=== PATIENT | female | born 1985 | race Caucasian/White ===

== ENCOUNTER 2024-10-11 12:30 | Emergency (ER) | payer OTHER, SELFPAY ==
--- OUTSIDE RECORDS SUMMARY | 2024-10-11 12:33 | XMS REPORT | Continuity of Care Document ---
Author Name Unknown Address [address] [facility] [address] [place] [id number] [facility] thconnect Address [address] [facility]. [address] [place] [address] Care Team Providers Care Systems Program Manager Name Role Phone GUU_SHENG_YAW Attending Clinician Unavailable AMBREEN_FARHANA Attending Clinician Unavailable GUU_SHENG_YAW Admitting Clinician Unavailable AMBREEN_FARHANA Admitting Clinician Unavailable Payers Payer Name Policy Type Policy Number Effective Date Expirati on Date Source Encounters Start Date/Time End Date/Time Encounter Type Admission Type Attending Clinicians Care Facility Care Department Encounter ID Source 2022-09-20 00:00:00 2022-09-20 00:00:00 Outpatient GUU_SHENG_Y AW [facility] [id number] [facility] 2022-02-06 02:48:00 2022-02-06 02:48:00 Outpatient GUU_SHENG_Y AW [facility] [id number] [facility] 2020-06-15 09:28:00 2020-06-15 09:28:00 Outpatient AMBREEN_FAR HANA [facility] [id number] [facility]
[2024-10-11] MEDS ORDERED: ONDANSETRON 4 MG/2 ML VIAL ONE (13:48)
[2024-10-11] MEDS ORDERED: NA CHLORIDE 0.9% 1,000 ML ONE (13:48)
[2024-10-11] MEDS ORDERED: PANTOPRAZOLE 40 MG INJ ONE (13:49)
[2024-10-11] MEDS ORDERED: MORPHINE 4 MG/ML SYR ONE ×2 (13:49→16:06)
[2024-10-11 14:12] LABS: Absolute Lymphocytes (CBC) 0.4 K/uL (0.7-4.9); Absolute Monocytes 0.5 K/uL (0.1-1.3); Absolute Neutrophil 7.4 K/uL (1.8-8.0); Basophils % 0.2 % (0-1.3); Eosinophils % 0.1 % (0-4.4); Hematocrit 36.2 % (36.0-45.0); Hemoglobin 12.1 g/dL (12.0-15.0); Lymphocytes % 4.8 % (15.3-44.8); MCH 26.6 pg (27.0-35.0); MCHC 33.3 g/dL (32.0-36.0); MCV 79.9 fL (80-100); MPV 8.3 fL (7.6-11.3); Monocytes % 5.8 % (3.3-12.3); Neutrophils % 89.1 % (41.7-73.7); Platelets 261 thou/uL (152-406); RBC Red Blood Cell Count 4.53 M/uL (3.86-4.86)
[2024-10-11 14:36] LABS: Albumin 3.4 g/dL (3.4-5.0); Albumin/Globulin Ratio 0.8 (1.1-1.8); Anion Gap 10.7 mEq/L (5.0-15.0); Bilirubin Total 0.6 mg/dL (0.2-1.0); Globulin 4.1 g/dL (2.3-3.5); Magnesium 2.1 mg/dL (1.6-2.4); Potassium 3.7 mEq/L (3.5-5.1); Protein, Total 7.5 g/dL (6.4-8.2)
[2024-10-11] MEDS ORDERED: METOCLOPRAMIDE 10 MG/2mL INJ ONE (16:06)
--- NOTE | 2024-10-11 16:22 | RAD REPORT ---
EXAMINATION: CT Abdomen Pelvis W Contrast CLINICAL INDICATION: Female, 39 years old. epigastric pain, vomiting TECHNIQUE: CT abdomen and pelvis was performed, after the administration of IV contrast, as per [facility] protocol. Axial, sagittal and coronal reconstructions were obtained. One or more of the following dose reduction techniques were used: Automated exposure control, adjustment of the mA and k V according to patient size, and iterative reconstruction. Unless otherwise specified, incidental findings do not require dedicated imaging follow-up. COMPARISON: No prior exam. FINDINGS: LOWER CHEST: The visualized lung bases are clear. LIVER: Normal in size and contour. No focal lesion. BILIARY SYSTEM: Pericholecystic mild fluid and wall thickening. SPLEEN: Normal size. No focal lesion. PANCREAS: No mass, ductal dilation, or vern-pancreatic fluid. ADRENALS: Normal; no mass. KIDNEYS: Normal size and contour. No hydronephrosis. URINARY BLADDER: Unremarkable. GASTROINTESTINAL TRACT: Sequelae of gastric bypass. No evidence of free air, significant intra-abdomi nal free fluid, bowel obstruction or abscess. APPENDIX: Normal appendix. LYMPH NODES: No lymphadenopathy. MUSCULOSKELETAL: No acute or suspicious osseous abnormality. ADDITIONAL FINDINGS: Small left inguinal hernia containing fat. IMPRESSION: Mild gallbladder wall thickening and pericholecystic fluid. Please correlate clinically for evidence of acute cholecystitis. Other incidental findings as above.
--- NOTE | 2024-10-11 18:04 | RAD REPORT ---
EXAMINATION: US Abdomen Exam Limited CLINICAL HISTORY: [facility] MAIN Y EPIGASTRIC PAIN Bed Name: 15 COMPARISON: None. TECHNIQUE: Limited upper abdominal grayscale and color flow sonographic images. FINDINGS: Gallbladder: Layering sludge and shadowing calculi present dependently. Gallbladder wall is at the up per limit of normal, measuring 3-4 mm. Mild wall edema. Sonographic Jennings's sign is reportedly negative. No pericholecystic fluid. Bile ducts: No intrahepatic or extrahepatic biliary dilatation. Common bile duct measures 5 mm. Liver: Visualized portions of the liver demonstrate normal echogenicity with no suspicious findings. Fluid: No ascites. IMPRESSION: Cholelithiasis with gallbladder wall at the upper limit of normal thickness. Mild wall edema. Please correlate clinically for acute cholecystitis.
--- NOTE | 2024-10-11 18:17 | ER ---
Nurse's Notes [facility] Name: Greer Clark Age: 39 yrs Sex: Female : 1985 Arrival Date: 10/11/2024 Time: 12:30 Bed 15 Private MD: Diagnosis: Other cholelithiasis without obstruction Presentation: 10/11 13:06 Chief complaint: Patient states: ABD PAIN N/V STARTED THIS AM LEONORA 0900. Coronavirus db screen: Client denies travel out of the [place] in the last 14 days. At this time, the client does not indicate any symptoms associated with coronavirus-19. Ebola Screen: Patient negative for fever greater than or equal to 101.5 degrees Fahrenheit, and additional compatible Ebola Virus Disease symptoms Patient denies exposure to infectious person. Patient denies travel to an Ebola-affected area in the 21 days before illness onset. No symptoms or risks identified at this time. 13:06 Method Of Arrival: Wheelchair db 13:07 Initial Sepsis Screen: Does the patient meet any 2 criteria? No. Patient's initial db sepsis screen is negative. Does the patient have a suspected source of infection? No. Patient's initial sepsis screen is negative. Risk Assessment: Do you want to hurt yourself or someone else? Patient reports no desire to harm self or others. Onset of symptoms was October 11, 2024. 13:07 Acuity: JOSE RAFAEL 3 db Triage Assessment: 13:08 General: Appears in no apparent distress. comfortable, Behavior is calm, cooperative. db Pain: Complains of pain in abdomen. Neuro: Level of Consciousness is awake, alert, obeys commands, Oriented to person, place, time, situation. Respiratory: Airway is patent Respiratory effort is even, unlabored, Respiratory pattern is regular, symmetrical. GI: Abdomen is flat, non-distended, Reports nausea, vomiting. 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 - Infectious Disease History:: Denies. - Social history:: Smoking status: Patient denies any tobacco usage or history of. Screenin:05 [facility] ED Fall Risk Assessment (Adult) History of falling in the last 3 months, rs5 including since admission No falls in past 3 months (0 pts) Confusion or Disorientation No (0 pts) Intoxicated or Sedated No (0 pts) Impaired Gait No (0 pts) Mobility Assist Device Used No (0 pt) Altered Elimination No (0 pt) Score/Fall Risk Level 0 - 2 = Low Risk Oriented to surroundings, Maintained a safe environment. 13:05 Abuse screen: Denies threats or abuse. Nutritional screening: No deficits noted. rs5 Tuberculosis screening: No symptoms or risk factors identified. Assessment: 13:01 General: Appears in no apparent distress. uncomfortable, Behavior is calm, cooperative. rs5 Pain: Complains of pain in abdomen Pain currently is 8 out of 10 on a pain scale. Quality of pain is described as aching, Is continuous. Neuro: Level of Consciousness is awake, alert, obeys commands, Oriented to person, place, time, situation. Cardiovascular: Patient's skin is warm and dry. Respiratory: Airway is patent Respiratory effort is even, unlabored, Respiratory pattern is regular, symmetrical. GI: Bowel sounds present X 4 quads. Abd is soft and non tender X 4 quads. Reports nausea. : No signs and/or symptoms were reported regarding the genitourinary system. EENT: No signs and/or symptoms were reported regarding the EENT system. Derm: Skin is intact, Skin is pink, warm \T\ dry. Musculoskeletal: Range of motion: intact in all extremities. 14:11 Reassessment: Patient and/or family updated on plan of care and expected duration. Pain rs5 level reassessed. Patient is alert, oriented x 3, equal unlabored respirations, skin warm/dry/pink. 15:24 Reassessment: Patient and/or family updated on plan of care and expected duration. Pain rs5 level reassessed. Patient is alert, oriented x 3, equal unlabored respirations, skin warm/dry/pink. 16:42 Reassessment: Patient and/or family updated on plan of care and expected duration. Pain rs5 level reassessed. Patient is alert, oriented x 3, equal unlabored respirations, skin warm/dry/pink. Vital Signs: 13:07 BP 144 / 80; Pulse 60; Resp 16; Temp 98.6; Pulse Ox 96% on R/A; Weight 103.87 kg; db Height 5 ft. 5 in. ; 16:45 BP 137 / 79; Pulse 66; Resp 17; Pulse Ox 99% ; rs5 13:07 Body Mass Index 38.11 (103.87 kg, 165.1 cm) db ED Course: 12:32 Patient arrived in ED. mr 12:49 Dameon Calzada PA is PHCP. cp 12:49 Jerry Morrison MD is Attending Physician. cp 13:05 Patient has correct armband on for positive identification. Bed in low position. Call rs5 light in reach. Side rails up X2. 13:05 No provider procedures requiring assistance completed. rs5 13:08 Triage completed. db 13:08 Arm band placed on Patient placed in an exam room. db 13:22 Wililams Jenkins, RN is Primary Nurse. rs5 13:58 Initial lab(s) drawn, by tn, sent to lab. Inserted saline lock: 20 gauge in right db antecubital area, using aseptic technique. Blood collected. Flushed with 10 mL NS. 15:38 CT Abd/Pelvis - PO and IV Contrast In Process Unspecified. EDMS 17:15 US Abdomen Limited In Process Unspecified. EDMS 18:15 Julius Macias MD is Referral Physician. cp Administered Medications: 13:59 Drug: Ondansetron IVP 4 mg IVP once; over 2 minutes Route: IVP; Site: right antecubital;db 14:20 Follow up: Response: No adverse reaction; Nausea is decreased rs5 13:59 Drug: NS 0.9% IV 1000 ml IV at 1 bolus Per protocol; to be given as a bolus over 60 db minutes Route: IV; Rate: 1 bolus; Site: right antecubital; 15:01 Follow up: Response: No adverse reaction; IV Intake: 999ml rs5 13:59 Drug: Pantoprazole IVP 40 mg IVP once Route: IVP; Site: right antecubital; db 14:22 Follow up: Response: No adverse reaction rs5 13:59 Drug: morphine IVP or IV 4 mg IVP once over 4 mins Route: IVP; Infused Over: 4 mins; db Site: right antecubital; 14:20 Follow up: Response: No adverse reaction; Pain is decreased rs5 16:11 Drug: metoCLOPramide IVP 10 mg IVP once; over 1 to 2 minutes Route: IVP; Site: right rs5 antecubital; 16:34 Follow up: Response: No adverse reaction; Nausea is decreased rs5 16:11 Drug: morphine IVP or IV 4 mg IVP once over 4 mins Route: IVP; Infused Over: 4 mins; rs5 Site: right antecubital; 16:33 Follow up: Response: No adverse reaction; Pain is decreased rs5 Medication: 16:43 VIS not applicable for this client. rs5 Intake: 15:01 IV: 999ml; Total: 999ml. rs5 Outcome: 18:16 Discharge ordered by MD. mathur 18:34 Patient left the ED. rs5 Signatures: Dispatcher [employer] EDMS Melanie Newberry Reg Reg mr Page, Corey, PA PA cp Benton, Danielle, RN RN Williams Pedroza RN RN rs5
--- NOTE | 2024-10-11 18:17 | EDPHYS ---
Physician Documentation [facility] Name: Greer Clark Age: 39 yrs Sex: Female : 1985 Arrival Date: 10/11/2024 Time: 12:30 Bed 15 Private MD: ED Physician Jerry Morrison HPI: 10/11 13:45 This 39 yrs old Female presents to ER via Wheelchair with complaints of Abdominal Pain, cp Vomiting. 13:45 The patient presents with abdominal pain in the epigastric area. Onset: The cp symptoms/episode began/occurred this morning. 13:45 The symptoms radiate to back. Associated signs and symptoms: Pertinent positives: cp nausea and vomiting, Pertinent negatives: constipation, diarrhea, dysuria, fever, vomiting blood. The symptoms are described as constant. Severity of pain: in the emergency department the pain is unchanged despite home interventions. 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 - Infectious Disease History:: Denies. - Social history:: Smoking status: Patient denies any tobacco usage or history of. ROS: 13:50 Constitutional: Negative for body aches, chills, fever, cp 13:50 Eyes: Negative for injury, pain, redness, and discharge, cp 13:50 ENT: Negative for drainage from ear(s), ear pain, sore throat, difficulty swallowing, difficulty handling secretions, 13:50 Respiratory: Negative for cough, shortness of breath, wheezing, 13:50 Abdomen/GI: Positive for abdominal pain, nausea and vomiting, Negative for diarrhea, constipation, hematemesis, 13:50 Neuro: Negative for altered mental status, weakness, 13:50 All other systems are negative, Exam: 13:55 Constitutional: The patient appears in no acute distress, alert, awake, cp non-diaphoretic, non-toxic, well developed, well nourished, obese, uncomfortable, 13:55 Head/Face: Normocephalic, atraumatic. cp 13:55 Eyes: Periorbital structures: appear normal, Conjunctiva: normal, no exudate, no injection, Sclera: no appreciated abnormality, Lids and lashes: appear normal, bilaterally, 13:55 ENT: External ear(s): are unremarkable, Nose: is normal, Mouth: Lips: moist, Oral mucosa: moist, Posterior pharynx: Airway: no evidence of obstruction, patent, 13:55 Chest/axilla: Inspection: normal, 13:55 Cardiovascular: Rate: normal, Rhythm: regular, 13:55 Respiratory: the patient does not display signs of respiratory distress, Respirations: normal, no use of accessory muscles, no retractions, labored breathing, is not present, Breath sounds: are clear throughout, no decreased breath sounds, no stridor, no wheezing, 13:55 Abdomen/GI: Inspection: abdomen appears normal, Bowel sounds: active, all quadrants, Palpation: soft, in all quadrants, moderate abdominal tenderness, in the epigastric area, rebound tenderness, is not appreciated, 13:55 Back: CVA tenderness, is absent, 13:55 Neuro: Orientation: to person, place \T\ time. Mentation: is normal, Motor: moves all fours, strength is normal, Sensation: is normal, Vital Signs: 13:07 BP 144 / 80; Pulse 60; Resp 16; Temp 98.6; Pulse Ox 96% on R/A; Weight 103.87 kg; db Height 5 ft. 5 in. ; 16:45 BP 137 / 79; Pulse 66; Resp 17; Pulse Ox 99% ; rs5 13:07 Body Mass Index 38.11 (103.87 kg, 165.1 cm) db MDM: 12:59 Medical Screening Exam initiated cp 14:00 Differential diagnosis: cholecystitis, Cholelithiasis, gastritis, gastroesophageal cp reflux disease, non-specific abd pain, pancreatitis, Perf. Duodenal Ulcer, Perf. Gastric Ulcer, Pyelonephritis, Ureterolithiasis, urinary tract infection. 18:13 Data reviewed: vital signs, nurses notes, lab test result(s), radiologic studies, CT cp scan, ultrasound. I considered the following discharge prescriptions or medication management in the emergency department Medications were administered in the Emergency Department. See MAR. Counseling: I had a detailed discussion with the patient and/or guardian regarding the historical points, exam findings, and any diagnostic results supporting the discharge/admit diagnosis, lab results, radiology results, recommendation to admit for surgical consultation. 18:15 Special discussion: recommendation for admission and surgical consultation. patient cp refuses at this time and understands risk of condition worsening due to concern for acute cholecystitis at this time. patient understands she can return at any time for reevaluation. 18:15 Response to treatment: the patient's symptoms have markedly improved after treatment, kaeren and as a result, I will discharge patient. 10/11 13:37 Order name: CBC with Diff; Complete Time: 16:44 cp 10/11 16:44 Interpretation: Normal except: MCV 79.9; MCH 26.6; DEVIN% 89.1; LYM% 4.8; LYMA 0.4. cp 10/11 13:37 Order name: CMP; Complete Time: 16:44 cp 10/11 16:44 Interpretation: Normal except: CL 108; GLUC 144; AST 42; GLOB 4.1; A/G 0.8. cp 10/11 13:37 Order name: Lipase; Complete Time: 16:44 cp 10/11 13:37 Order name: Magnesium; Complete Time: 16:44 cp 10/11 13:37 Order name: CT Abd/Pelvis - PO and IV Contrast; Complete Time: 16:44 cp 10/11 16:45 Interpretation: Report reviewed. 10/11 16:46 Order name: US Abdomen Limited; Complete Time: 18:07 cp 10/11 13:37 Order name: IV Saline Lock; Complete Time: 14:05 cp 10/11 13:37 Order name: Labs collected and sent; Complete Time: 14:05 cp Administered Medications: 13:59 Drug: Ondansetron IVP 4 mg IVP once; over 2 minutes Route: IVP; Site: right antecubital;db 14:20 Follow up: Response: No adverse reaction; Nausea is decreased rs5 13:59 Drug: NS 0.9% IV 1000 ml IV at 1 bolus Per protocol; to be given as a bolus over 60 db minutes Route: IV; Rate: 1 bolus; Site: right antecubital; 15:01 Follow up: Response: No adverse reaction; IV Intake: 999ml rs5 13:59 Drug: Pantoprazole IVP 40 mg IVP once Route: IVP; Site: right antecubital; db 14:22 Follow up: Response: No adverse reaction rs5 13:59 Drug: morphine IVP or IV 4 mg IVP once over 4 mins Route: IVP; Infused Over: 4 mins; db Site: right antecubital; 14:20 Follow up: Response: No adverse reaction; Pain is decreased rs5 16:11 Drug: metoCLOPramide IVP 10 mg IVP once; over 1 to 2 minutes Route: IVP; Site: right rs5 antecubital; 16:34 Follow up: Response: No adverse reaction; Nausea is decreased rs5 16:11 Drug: morphine IVP or IV 4 mg IVP once over 4 mins Route: IVP; Infused Over: 4 mins; rs5 Site: right antecubital; 16:33 Follow up: Response: No adverse reaction; Pain is decreased rs5 Disposition: 18:57 Co-signature as Attending Physician, Jerry Morrison MD I reviewed the patient's care rn provided by the Advanced Practice Provider and agree with the diagnosis and treatment plan. Disposition Summary: 10/11/24 18:16 Discharge Ordered Notes: Location: Home cp Problem: new cp Symptoms: have improved cp Condition: Stable cp Diagnosis - Other cholelithiasis without obstruction cp Followup: cp - With: Julius Macias MD - When: 2 - 3 days - Reason: Recheck today's complaints Discharge Instructions: - Discharge Summary Sheet cp - Cholelithiasis cp Forms: - Medication Reconciliation Form cp - Antibiotic Education cp - Prescription Opioid Use cp - Patient Portal Instructions cp - Leadership Thank You Letter cp Prescriptions: - Diflucan 150 mg Oral tablet - take 1 tablet ORAL route one time As needed; 2 tablet; Refills: 0, Product cp Selection Permitted - Zofran 4 mg Oral Tablet - take 1 tablet ORAL route every 12 hours As needed; 20 tablet; Refills: 0, cp Product Selection Permitted - Cipro 500 mg Oral Tablet - take 1 tablet ORAL route every 12 hours for 7 days; 14 tablet; Refills: 0, cp Product Selection Permitted - Metronidazole 500 mg Oral tablet - take 1 tablet ORAL route every 8 hours for 7 days; 21 tablet; Refills: 0, cp Product Selection Permitted - dicyclomine 20 mg Oral tablet - take 1 tablet ORAL route 4 times per day; 30 tablet; Refills: 0, Product cp Selection Permitted Signatures: Dispatcher [employer] EDJerry Turner MD MD rn Page, Corey, PA PA cp Diamante Jameson RN RN Williams Pedroza RN RN rs5 Corrections: (The following items were deleted from the chart) 13:38 13:38 CBC+H.LAB.BRZ ordered. EDMS EDMS 13:38 13:38 COMPREHENSIVE METABOLIC PANEL+C.LAB.BRZ ordered. EDMS EDMS 13:38 13:38 LIPASE+C.LAB.BRZ ordered. EDMS EDMS 13:38 13:38 Test, Urine+UC.LAB.BRZ ordered. EDMS EDMS 13:38 13:38 Urinalysis+U.LAB.BRZ ordered. EDMS EDMS 13:38 13:38 MAGNESIUM+C.LAB.BRZ ordered. EDMS EDMS 13:38 13:38 Abdomen Pelvis W Con+CT.RAD.BRZ ordered. EDMS EDMS 16:47 16:47 Abdomen Limited+US.RAD.BRZ ordered. EDMS EDMS
[2024-10-13 16:12] VITALS: BP 137/79; TEMP 98.6; O2SAT 99
== END 2024-10-11 18:34 | disposition home or self-care (01) ==
LOC: ER 12:30
DX: K80.80 Other cholelithiasis without obstruction (principal); Z98.84 Bariatric surgery status
CPT/HCPCS: 36415; 74177; 76705; 80053; 83690; 83735; 85025; 96374; 96375; 99284; J2405; J2470; J2765; J7030; Q9967

== ENCOUNTER 2024-10-25 01:16 | Emergency (ER) | payer SELFPAY ==
--- OUTSIDE RECORDS SUMMARY | 2024-10-25 01:18 | XMS REPORT | Continuity of Care Document ---
Author Name Unknown Address [address] [place], [place] [id number] [facility] thconnect Address [address] [place] [address] [address] [place] [address] Care Team Providers Care Parking Supervisor Name Role Phone GUU_SHENG_YAW Attending Clinician Unavailable AMBREEN_FARHANA Attending Clinician Unavailable GUU_SHENG_YAW Admitting Clinician Unavailable AMBREEN_FARHANA Admitting Clinician Unavailable Payers Payer Name Policy Type Policy Number Effective Date Expirati on Date Source Encounters Start Date/Time End Date/Time Encounter Type Admission Type Attending Clinicians Care Facility Care Department Encounter ID Source 2022-09-20 00:00:00 2022-09-20 00:00:00 Outpatient GUU_SHENG_Y AW [facility] [id number] [facility] 2022-02-06 02:48:00 2022-02-06 02:48:00 Outpatient GUU_SHENG_Y AW [facility] [id number] [facility] 2020-06-15 09:28:00 2020-06-15 09:28:00 Outpatient AMBREEN_FAR HANA [facility] [id number] [facility]
[2024-10-25] MEDS ORDERED: NA CHLORIDE 0.9% 1,000 ML ONE ×2 (01:39→04:41)
[2024-10-25] MEDS ORDERED: FAMOTIDINE 20 MG/2 ML VIAL IV ONE (01:39)
[2024-10-25] MEDS ORDERED: KETOROLAC 30 MG/ML INJ ONE (01:39)
[2024-10-25] MEDS ORDERED: ONDANSETRON 4 MG/2 ML VIAL ONE ×2 (01:39→02:34)
[2024-10-25 02:14] LABS: Absolute Lymphocytes (CBC) 0.5 K/uL (0.7-4.9); Absolute Monocytes 0.3 K/uL (0.1-1.3); Absolute Neutrophil 6.2 K/uL (1.8-8.0); Basophils % 0.3 % (0-1.3); Eosinophils % 0.1 % (0-4.4); Hematocrit 36.3 % (36.0-45.0); Lymphocytes % 6.5 % (15.3-44.8); MCV 78.8 fL (80-100); MPV 8.4 fL (7.6-11.3); Monocytes % 4.8 % (3.3-12.3); Neutrophils % 88.3 % (41.7-73.7); Nucleated Red Blood Cells % 0.1 % (0-0); Platelets 282 thou/uL (152-406); Red Cell Distribution Width 14.9 % (12.1-15.2)
[2024-10-25 02:22] LABS: Albumin 3.4 g/dL (3.4-5.0); Albumin/Globulin Ratio 0.8 (1.1-1.8); Anion Gap 10.4 mEq/L (5.0-15.0); Globulin 4.3 g/dL (2.3-3.5); Potassium 3.4 mEq/L (3.5-5.1); Protein, Total 7.7 g/dL (6.4-8.2)
[2024-10-25] MEDS ORDERED: MORPHINE 4 MG/ML SYR ONE ×2 (02:34→04:40)
[2024-10-25 04:04] LABS: Blood Morphology Comment NOT SEEN (NOT SEEN); Platelet Estimate ADEQ; White Blood Cell Scan OK (OK)
--- NOTE | 2024-10-25 04:27 | RAD REPORT ---
EXAM: CT Abdomen and Pelvis With Intravenous Contrast CLINICAL HISTORY: The patient is 39 years old and is Female; ABD PAIN TECHNIQUE: Axial computed tomography images of the abdomen and pelvis with intravenous contrast. Sagittal and coronal reformatted images were created and reviewed. This CT exam was performed using one or more of the following dose reduction techniques: automated exposure control, adjustmen t of the mA and/or kV according to patient size, and/or use of iterative reconstruction technique. COMPARISON: CT abdomen and pelvis with contrast October 11, 2024. FINDINGS: Lung bases: Unremarkable. No mass. No consolidation. ABDOMEN: Liver: Unremarkable. No mass. Gallbladder and bile ducts: There may be some mild gallbladder wall thickening and/or pericholecy stic fluid. No ductal dilation. Pancreas: Unremarkable. No mass. No ductal dilation. Spleen: Unremarkable. No splenomegaly. Adrenals: Unremarkable. No mass. Kidneys and ureters: Unremarkable. No solid mass. No hydronephrosis. Stomach and bowel: Postsurgical changes in the stomach. No obstruction. No mucosal thickening. PELVIS: Appendix: No findings to suggest acute appendicitis. Bladder: Unremarkable. Reproductive: Unremarkable as visualized. ABDOMEN and PELVIS: Intraperitoneal space: Unremarkable. No free air. No significant fluid collection. Bones/joints: Old left rib fractures. Postsurgical changes in the right hip/pelvis. No dislocation. Soft tissues: Unremarkable. Vasculature: Unremarkable. No abdominal aortic aneurysm. Lymph nodes: Unremarkable. No enlarged lymph nodes. * A single impression for all exams can be found at the end of this report EXAM: XR Chest, 1 View CLINICAL HISTORY: The patient is 39 years old and is Female; ABD PAIN TECHNIQUE: Frontal view of the chest. COMPARISON: No relevant prior studies available. FINDINGS: Lungs: Unremarkable. No consolidation. Pleural space: Unremarkable. No pneumothorax. Heart: Unremarkable. Mediastinum: Unremarkable. Normal mediastinal contour. Bones/joints: No acute findings. * A single impression for all exams can be found at the end of this report IMPRESSION: CT Abdomen and Pelvis With Intravenous Contrast: There may be some mild gallbladder wall thickening and/or pericholecystic fluid. Correlate with r ight upper quadrant ultrasound if clinically indicated. XR Chest, 1 View: No acute findings in the chest. 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 Transcribed Date/Time: 10/25/2024 4:26 AM
[2024-10-25] MEDS ORDERED: PIPERACIL/TAZO 3.375 GM VIAL IV ONE (04:32)
[2024-10-25] MEDS ORDERED: NA CHLORIDE 0.9% 100 ML ONE (04:32)
[2024-10-25] MEDS ORDERED: METOCLOPRAMIDE 10 MG/2mL INJ ONE (04:40)
--- NOTE | 2024-10-25 05:07 | ER ---
Nurse's Notes [facility] Name: Greer Clark Age: 39 yrs Sex: Female : 1985 Arrival Date: 10/25/2024 Time: 01:16 Bed 17 Private MD: Diagnosis: Cholecystitis, unspecified Presentation: 10/25 01:25 Chief complaint: Patient states: i have gallstones and i need my gallbladder out but i lg3 refused. the pain is back and 10X worse. Coronavirus screen: Client denies travel out of the [place] in the last 14 days. At this time, the client does not indicate any symptoms associated with coronavirus-19. Ebola Screen: No symptoms or risks identified at this time. Initial Sepsis Screen: Does the patient meet any 2 criteria? No. Patient's initial sepsis screen is negative. Does the patient have a suspected source of infection? No. Patient's initial sepsis screen is negative. Risk Assessment: Do you want to hurt yourself or someone else? Patient reports no desire to harm self or others. Onset of symptoms was October 24, 2024. 01:25 Method Of Arrival: Wheelchair lg3 01:25 Acuity: JOSE RAFAEL 3 lg3 Triage Assessment: 01:27 General: Appears in no apparent distress. uncomfortable, Behavior is anxious, fussy, lg3 restless. Pain: Complains of pain in epigastric area Pain radiates to back. EENT: No deficits noted. No signs and/or symptoms were reported regarding the EENT system. Neuro: No deficits noted. [place] Agitation-Sedation Scale (RASS): 0 - Alert and Calm Level of Consciousness is awake, alert, obeys commands, Oriented to person, place, time, situation. Cardiovascular: No deficits noted. Denies chest pain, shortness of breath, Capillary refill < 3 seconds Clubbing of nail beds is absent JVD is absent Patient's skin is warm and dry. Respiratory: No deficits noted. Airway is patent Respiratory effort is even, unlabored, Respiratory pattern is regular, symmetrical. GI: Abdomen is round non-distended, obese, Reports upper abdominal pain, indigestion, intolerance of fluids, intolerance of food, nausea. : No signs and/or symptoms were reported regarding the genitourinary system. Derm: No deficits noted. No signs and/or symptoms reported regarding the dermatologic system. Skin is intact, is healthy with good turgor, Skin is dry, Skin is normal, Skin temperature is warm. Musculoskeletal: No deficits noted. No signs and/or symptoms reported regarding the musculoskeletal system. Circulation, motion, and sensation intact. Range of motion: intact in all extremities. 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 - Infectious Disease History:: Denies. - Social history:: Smoking status: Patient denies any tobacco usage or history of. Patient uses alcohol, occasionally. Patient/guardian denies using street drugs. Screenin:25 [facility] ED Fall Risk Assessment (Adult) History of falling in the last 3 months, br2 including since admission No falls in past 3 months (0 pts) Confusion or Disorientation No (0 pts) Intoxicated or Sedated No (0 pts) Impaired Gait No (0 pts) Mobility Assist Device Used No (0 pt) Altered Elimination No (0 pt) Score/Fall Risk Level 0 - 2 = Low Risk Oriented to surroundings. Abuse screen: Denies threats or abuse. Denies injuries from another. Nutritional screening: No deficits noted. Tuberculosis screening: No symptoms or risk factors identified. Assessment: 01:25 Reassessment: Patient and/or family updated on plan of care and expected duration. Pain br2 level reassessed. Patient is alert, oriented x 3, equal unlabored respirations, skin warm/dry/pink. 01:25 General: Appears uncomfortable, obese, Behavior is anxious, restless. Pain: Complains br2 of pain in right upper quadrant Pain does not radiate. Pain currently is 10 out of 10 on a pain scale. Pain began 2-3 days ago. Neuro: Level of Consciousness is awake, alert, obeys commands, Oriented to person, place, time, situation. Cardiovascular: Capillary refill < 3 seconds. Respiratory: Airway is patent Respiratory effort is even, unlabored, Respiratory pattern is regular, symmetrical. GI: Abdomen is obese, Bowel sounds present X 4 quads. Abdomen is tender to palpation in right upper quadrant. 01:25 GI: Reports upper abdominal pain, nausea, vomiting, since 1800. br2 02:36 Reassessment: Patient and/or family updated on plan of care and expected duration. Pain br2 level reassessed. Patient is alert, oriented x 3, equal unlabored respirations, skin warm/dry/pink. FEELING BETTER BUT PAIN IS COMING BACK, SALLY FRAZIER NOTIFIED. VERBAL ORDERS RECEIEVED Patient states feeling better. 03:18 Reassessment: Patient and/or family updated on plan of care and expected duration. Pain br2 level reassessed. Patient is alert, oriented x 3, equal unlabored respirations, skin warm/dry/pink. Patient states feeling better. 04:30 Reassessment: Patient and/or family updated on plan of care and expected duration. Pain br2 level reassessed. Patient is alert, oriented x 3, equal unlabored respirations, skin warm/dry/pink. c/o pain returning 04/08, SALLY CALZADA NOTIFIED. 05:29 Reassessment: Patient and/or family updated on plan of care and expected duration. Pain br2 level reassessed. Patient is alert, oriented x 3, equal unlabored respirations, skin warm/dry/pink. Patient states feeling better. Patient states symptoms have improved. 06:24 General: attempted to call report. nurse refused report due to working on different lg3 patient transfer. notified Jadyn with transfer center. Per Jadyn, call again for report and notify her of outcome . 06:26 Reassessment: Patient and/or family updated on plan of care and expected duration. Pain br2 level reassessed. Patient is alert, oriented x 3, equal unlabored respirations, skin warm/dry/pink. Patient states feeling better. Patient states symptoms have improved. 07:27 Reassessment: Patient appears in no apparent distress at this time. Patient and/or db family updated on plan of care and expected duration. Pain level reassessed. Patient is alert, oriented x 3, equal unlabored respirations, skin warm/dry/pink. EMS ARRIVAL FOR PATIENT TRANSPORT. Vital Signs: 01:25 BP 137 / 76; Pulse 68; Resp 17 S; Temp 98.1(O); Pulse Ox 100% on R/A; Weight 103.87 kg lg3 (R); Height 5 ft. 5 in. (R); Pain 10/10; 02:34 BP 139 / 83; Pulse 54; Resp 18; Pulse Ox 97% ; Pain 6/10; br2 03:18 BP 100 / 55; Pulse 74; Resp 18; Pulse Ox 93% on R/A; br2 04:30 BP 122 / 67; Pulse 60; Resp 18 S; Pulse Ox 95% on R/A; Pain 7/10; br2 05:29 BP 104 / 59; Pulse 70; Resp 18; Pulse Ox 94% on R/A; br2 06:25 BP 110 / 72; Pulse 98; Resp 18; Pulse Ox 94% on R/A; Pain 3/10; br2 07:15 BP 110 / 66; Pulse 59; Resp 16; Pulse Ox 97% on R/A; db 01:25 Body Mass Index 38.11 (103.87 kg, 165.1 cm) lg3 01:25 Pain Scale: Adult lg3 02:34 Pain Scale: Adult br2 04:30 Pain Scale: Adult br2 06:25 Pain Scale: Adult br2 ED Course: 01:17 Patient arrived in ED. jj6 01:22 Dameon Calzada PA is PHCP. cp 01:22 Dameon Alex MD is Attending Physician. cp 01:25 Patient has correct armband on for positive identification. Placed in gown. Bed in low br2 position. Call light in reach. Side rails up X 1. Provided Education on: PLAN OF CARE. 01:27 Triage completed. lg3 01:27 Arm band placed on right wrist. lg3 01:39 Inserted saline lock: 20 gauge in right antecubital area, using aseptic technique. lg3 Blood collected. Flushed with 10 mL NS. 01:48 CBC with Diff Sent. br2 01:48 CMP Sent. br2 01:48 Lipase Sent. br2 02:22 Seble Jain, RN is Primary Nurse. br2 02:50 CT Abd/Pelvis - IV Contrast Only In Process Unspecified. EDMS 02:58 XRAY Chest (1 view) In Process Unspecified. EDMS 04:56 US Abdomen Limited In Process Unspecified. EDMS 05:30 tranfer initiated \T\528. hw 06:27 Pt accepted to [facility] \T\[address] Varela, Going to [address], [place] [facility] to transport.reort given to [phone]. 07:27 Pulse ox on. NIBP on. Warm blanket given. Pillow given. db 07:27 No provider procedures requiring assistance completed. Patient transferred, IV remains db in place. Administered Medications: 01:47 Drug: Famotidine IVP 20 mg IVP once; dilute with 10 mL 0.9% NaCl; give over 2 minutes br2 Route: IVP; Site: right antecubital; 02:15 Follow up: Response: No adverse reaction br2 01:47 Drug: Ondansetron IVP 4 mg IVP once; over 2 minutes Route: IVP; Site: right antecubital;br2 02:15 Follow up: Response: No adverse reaction br2 01:47 Drug: NS 0.9% IV 1000 ml IV at 1 bolus Per protocol; to be given as a bolus over 60 br2 minutes Route: IV; Rate: 1 bolus; Site: right antecubital; 03:00 Follow up: Response: No adverse reaction; IV Status: Completed infusion; IV Intake: br2 1000ml 01:48 Drug: TORadol - Ketorolac IVP 15 mg IVP once Route: IVP; Site: right antecubital; br2 02:15 Follow up: Response: No adverse reaction; Pain is decreased br2 03:05 Drug: morphine IVP or IV 4 mg IVP once over 4 mins Route: IVP; Infused Over: 4 mins; br2 Site: right antecubital; 03:30 Follow up: Response: Pain is decreased br2 03:05 Drug: Ondansetron IVP 4 mg IVP once; over 2 minutes Route: IVP; Site: right antecubital;br2 03:30 Follow up: Response: No adverse reaction br2 04:53 Drug: Piperacillin-Tazobactam IVPB 3.375 grams IVPB once over 60 mins; (mix in NS 100 br2 mL) Route: IVPB; Infused Over: 60 mins; Site: right antecubital; 06:00 Follow up: IV Status: Completed infusion; IV Intake: 100ml br2 04:53 Drug: morphine IVP or IV 4 mg IVP once over 4 mins Route: IVP; Infused Over: 4 mins; br2 Site: right antecubital; 05:30 Follow up: Response: No adverse reaction br2 04:53 Drug: metoCLOPramide IVP 10 mg IVP once; over 1 to 2 minutes Route: IVP; Site: right br2 antecubital; 05:30 Follow up: Response: No adverse reaction br2 04:53 Drug: NS 0.9% IV 1000 ml IV at 125 ml/hr once; to be given as a bolus over 60 minutes br2 Route: IV; Rate: 125 ml/hr; Site: right antecubital; 07:28 Follow up: Response: No adverse reaction; IV Status: Infusion continued upon transfer; db IV Intake: 300ml Medication: 01:25 VIS not applicable for this client. br2 Intake: 03:00 IV: 1000ml; Total: 1000ml. br2 06:00 IV: 100ml; Total: 1100ml. br2 07:28 IV: 300ml; Total: 1400ml. db Outcome: 05:06 ER care complete, transfer ordered by MD. 07:27 Transferred by ground EMS to [facility], Transfer form completed. db 07:27 Condition: stable 07:27 Instructed on the need for transfer, 07:29 Patient left the ED. db Signatures: Dispatcher [employer] EDMS Dameon Calzada PA PA cp Able, Lacie, RN RN lg3 Radhika Dejesus jj6 Diamante Jameson RN RN db Seble Jain RN RN br2 Jeanette Galarza Corrections: (The following items were deleted from the chart) 02:36 01:25 Pain: Complains of pain in right upper quadrant Pain does not radiate. Pain br2 currently is 10 out of 10 on a pain scale. Pain began 2-3 days ago. br2 06:29 06:25 BP 110 / 72; Pulse 98bpm; Resp 18bpm; Pulse Ox 94% RA; br2 br2
--- NOTE | 2024-10-25 05:07 | EDPHYS ---
Physician Documentation [facility] Name: Greer Clark Age: 39 yrs Sex: Female : 1985 Arrival Date: 10/25/2024 Time: 01:16 Bed 17 Private MD: Dameon Altamirano HPI: 10/25 01:40 This 39 yrs old Female presents to ER via Wheelchair with complaints of Abdominal Pain, cp Nausea/Vomiting. 01:40 The patient presents with abdominal pain in the epigastric area. Onset: The cp symptoms/episode began/occurred suddenly, today. 01:40 The symptoms radiate to back. Associated signs and symptoms: Pertinent positives: cp nausea and vomiting, Pertinent negatives: constipation, diarrhea, fever, vomiting blood. The symptoms are described as constant. The patient has experienced a previous episode, pain similar to when diagnosed with gallstones. 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 - Infectious Disease History:: Denies. - Social history:: Smoking status: Patient denies any tobacco usage or history of. Patient uses alcohol, occasionally. Patient/guardian denies using street drugs. ROS: 01:45 Constitutional: Negative for body aches, chills, fever, cp 01:45 Eyes: Negative for injury, pain, redness, and discharge, cp 01:45 ENT: Negative for drainage from ear(s), ear pain, sore throat, difficulty swallowing, difficulty handling secretions, 01:45 Cardiovascular: Negative for chest pain, 01:45 Respiratory: Negative for cough, shortness of breath, wheezing, 01:45 Abdomen/GI: Positive for abdominal pain, nausea and vomiting, of the right upper quadrant and epigastric area, Exam: 01:50 Constitutional: The patient appears in no acute distress, alert, awake, non-toxic, well cp developed, well nourished, obese, uncomfortable, 01:50 Head/Face: Normocephalic, atraumatic. cp 01:50 Eyes: Periorbital structures: appear normal, Conjunctiva: normal, no exudate, no injection, Sclera: no appreciated abnormality, Lids and lashes: appear normal, bilaterally, 01:50 ENT: External ear(s): are unremarkable, Nose: is normal, Mouth: Lips: moist, Oral mucosa: moist, Posterior pharynx: Airway: no evidence of obstruction, patent, 01:50 Chest/axilla: Inspection: normal, 01:50 Cardiovascular: Rate: normal, Rhythm: regular, Edema: is not appreciated, JVD: is not appreciated, 01:50 Respiratory: the patient does not display signs of respiratory distress, Respirations: normal, no use of accessory muscles, no retractions, labored breathing, is not present, Breath sounds: are clear throughout, no decreased breath sounds, no stridor, no wheezing, 01:50 Abdomen/GI: Inspection: obese Bowel sounds: active, all quadrants, Palpation: soft, in all quadrants, severe abdominal tenderness, in the epigastric area and right upper quadrant, rebound tenderness, is not appreciated, voluntary guarding, is elicited in the epigastric area and right upper quadrant, 01:50 Neuro: Orientation: to person, place \T\ time. Mentation: is normal, Motor: moves all fours, no focal deficits, Vital Signs: 01:25 BP 137 / 76; Pulse 68; Resp 17 S; Temp 98.1(O); Pulse Ox 100% on R/A; Weight 103.87 kg lg3 (R); Height 5 ft. 5 in. (R); Pain 10/10; 02:34 BP 139 / 83; Pulse 54; Resp 18; Pulse Ox 97% ; Pain 6/10; br2 03:18 BP 100 / 55; Pulse 74; Resp 18; Pulse Ox 93% on R/A; br2 04:30 BP 122 / 67; Pulse 60; Resp 18 S; Pulse Ox 95% on R/A; Pain 7/10; br2 05:29 BP 104 / 59; Pulse 70; Resp 18; Pulse Ox 94% on R/A; br2 06:25 BP 110 / 72; Pulse 98; Resp 18; Pulse Ox 94% on R/A; Pain 3/10; br2 07:15 BP 110 / 66; Pulse 59; Resp 16; Pulse Ox 97% on R/A; db 01:25 Body Mass Index 38.11 (103.87 kg, 165.1 cm) lg3 01:25 Pain Scale: Adult lg3 02:34 Pain Scale: Adult br2 04:30 Pain Scale: Adult br2 06:25 Pain Scale: Adult br2 MDM: 01:32 Medical Screening Exam initiated 02:00 Differential diagnosis: cholecystitis, Cholelithiasis, pancreatitis, Pyelonephritis, cp Ureterolithiasis, urinary tract infection, sepsis, choledocholithiasis. 06:00 Data reviewed: vital signs, nurses notes, lab test result(s), radiologic studies, CT cp scan, ultrasound, and as a result, I will transfer patient. 06:00 I considered the following discharge prescriptions or medication management in the emergency department Medications were administered in the Emergency Department. See MAR. Counseling: I had a detailed discussion with the patient and/or guardian regarding the historical points, exam findings, and any diagnostic results supporting the discharge/admit diagnosis, lab results, radiology results, the need to transfer to another facility, [facility] does not immediately have the required specialist. Response to treatment: the patient's symptoms have mildly improved after treatment. 06:02 ED course: consult with DR Varela, hospitalist, will accept patient as transfer after discussion to [facility]. 10/25 01:36 Order name: CBC with Diff; Complete Time: 04:10 10/25 02:24 Interpretation: Normal except: MCV 78.8; MCH 26.0; DEVIN% 88.3; LYM% 6.5; LYMA 0.5. 10/25 01:36 Order name: CMP; Complete Time: 02:23 10/25 02:24 Interpretation: Normal except: K 3.4; GLUC 141; AST 164; ALT 108; ALK 128; GLOB 4.3; cp A/G 0.8. 10/25 01:36 Order name: Lipase; Complete Time: 02:23 10/25 04:04 Order name: CBC Smear Scan; Complete Time: 04:10 EDMS 10/25 01:36 Order name: CT Abd/Pelvis - IV Contrast Only 10/25 02:27 Order name: XRAY Chest (1 view) 10/25 04:12 Order name: US Abdomen Limited 10/25 01:36 Order name: IV Saline Lock; Complete Time: 01:48 cp 10/25 01:36 Order name: Labs collected and sent; Complete Time: 01:48 cp 10/25 05:28 Order name: NPO; Complete Time: 05:30 cp Administered Medications: 01:47 Drug: Famotidine IVP 20 mg IVP once; dilute with 10 mL 0.9% NaCl; give over 2 minutes br2 Route: IVP; Site: right antecubital; 02:15 Follow up: Response: No adverse reaction br2 01:47 Drug: Ondansetron IVP 4 mg IVP once; over 2 minutes Route: IVP; Site: right antecubital;br2 02:15 Follow up: Response: No adverse reaction br2 01:47 Drug: NS 0.9% IV 1000 ml IV at 1 bolus Per protocol; to be given as a bolus over 60 br2 minutes Route: IV; Rate: 1 bolus; Site: right antecubital; 03:00 Follow up: Response: No adverse reaction; IV Status: Completed infusion; IV Intake: br2 1000ml 01:48 Drug: TORadol - Ketorolac IVP 15 mg IVP once Route: IVP; Site: right antecubital; br2 02:15 Follow up: Response: No adverse reaction; Pain is decreased br2 03:05 Drug: morphine IVP or IV 4 mg IVP once over 4 mins Route: IVP; Infused Over: 4 mins; br2 Site: right antecubital; 03:30 Follow up: Response: Pain is decreased br2 03:05 Drug: Ondansetron IVP 4 mg IVP once; over 2 minutes Route: IVP; Site: right antecubital;br2 03:30 Follow up: Response: No adverse reaction br2 04:53 Drug: Piperacillin-Tazobactam IVPB 3.375 grams IVPB once over 60 mins; (mix in NS 100 br2 mL) Route: IVPB; Infused Over: 60 mins; Site: right antecubital; 06:00 Follow up: IV Status: Completed infusion; IV Intake: 100ml br2 04:53 Drug: morphine IVP or IV 4 mg IVP once over 4 mins Route: IVP; Infused Over: 4 mins; br2 Site: right antecubital; 05:30 Follow up: Response: No adverse reaction br2 04:53 Drug: metoCLOPramide IVP 10 mg IVP once; over 1 to 2 minutes Route: IVP; Site: right br2 antecubital; 05:30 Follow up: Response: No adverse reaction br2 04:53 Drug: NS 0.9% IV 1000 ml IV at 125 ml/hr once; to be given as a bolus over 60 minutes br2 Route: IV; Rate: 125 ml/hr; Site: right antecubital; 07:28 Follow up: Response: No adverse reaction; IV Status: Infusion continued upon transfer; db IV Intake: 300ml Disposition Summary: 10/25/24 05:06 Transfer Ordered Notes: Transfer Location: [facility] cp Reason: Higher level of care cp Condition: Stable cp Problem: new cp Symptoms: have improved cp Accepting Physician: DR Varela(10/25/24 07:29) db Diagnosis - Cholecystitis, unspecified cp Forms: - Medication Reconciliation Form cp - SBAR form cp Addendum: 10/27/2024 14:16 Co-signature as Attending Physician, Dameon Alex MD I agree with the assessment and c nichols plan of care. Signatures: Dispatcher [employer] Dameon Tinsley MD MD cha Page, Corey, PA PA Judi Franklin RN RN lg3 Diamante Jameson RN RN db Seble Jain RN RN br2 Corrections: (The following items were deleted from the chart) 10/25 06:05 05:06 doctor cp cp 07:29 06:05 DR Varela cp db
--- NOTE | 2024-10-25 05:14 | RAD REPORT ---
EXAM: CT Abdomen and Pelvis With Intravenous Contrast CLINICAL HISTORY: The patient is 39 years old and is Female; ABD PAIN TECHNIQUE: Axial computed tomography images of the abdomen and pelvis with intravenous contrast. Sagittal and coronal reformatted images were created and reviewed. This CT exam was performed using one or more of the following dose reduction techniques: automated exposure control, adjustmen t of the mA and/or kV according to patient size, and/or use of iterative reconstruction technique. COMPARISON: CT abdomen and pelvis with contrast October 11, 2024. FINDINGS: Lung bases: Unremarkable. No mass. No consolidation. ABDOMEN: Liver: Unremarkable. No mass. Gallbladder and bile ducts: There may be some mild gallbladder wall thickening and/or pericholecy stic fluid. No ductal dilation. Pancreas: Unremarkable. No mass. No ductal dilation. Spleen: Unremarkable. No splenomegaly. Adrenals: Unremarkable. No mass. Kidneys and ureters: Unremarkable. No solid mass. No hydronephrosis. Stomach and bowel: Postsurgical changes in the stomach. No obstruction. No mucosal thickening. PELVIS: Appendix: No findings to suggest acute appendicitis. Bladder: Unremarkable. Reproductive: Unremarkable as visualized. ABDOMEN and PELVIS: Intraperitoneal space: Unremarkable. No free air. No significant fluid collection. Bones/joints: Old left rib fractures. Postsurgical changes in the right hip/pelvis. No dislocation. Soft tissues: Unremarkable. Vasculature: Unremarkable. No abdominal aortic aneurysm. Lymph nodes: Unremarkable. No enlarged lymph nodes. * A single impression for all exams can be found at the end of this report EXAM: XR Chest, 1 View CLINICAL HISTORY: The patient is 39 years old and is Female; ABD PAIN TECHNIQUE: Frontal view of the chest. COMPARISON: No relevant prior studies available. FINDINGS: Lungs: Unremarkable. No consolidation. Pleural space: Unremarkable. No pneumothorax. Heart: Unremarkable. Mediastinum: Unremarkable. Normal mediastinal contour. Bones/joints: No acute findings. * A single impression for all exams can be found at the end of this report IMPRESSION: CT Abdomen and Pelvis With Intravenous Contrast: There may be some mild gallbladder wall thickening and/or pericholecystic fluid. Correlate with r ight upper quadrant ultrasound if clinically indicated. XR Chest, 1 View: No acute findings in the chest. Electronically signed by: Kevin Car MD 10/25/2024 04:03 AM SEXOLOGIST 8 Due to temporary technical issues with the PACS/[employer] reporting system, reports are being isatu d by the in-house radiologist without review as a courtesy to ensure prompt reporting the interpreting radiologist is fully responsible for the content of the report. Transcribed Date/Time: 10/25/2024 5:13 AM
--- NOTE | 2024-10-25 07:00 | RAD REPORT ---
EXAM: US Abdomen Limited, Gallbladder CLINICAL HISTORY: The patient is 39 years old and is Female; ABD PAIN TECHNIQUE: Real-time ultrasound of the right upper quadrant with image documentation. COMPARISON: No relevant prior studies available. FINDINGS: Gallbladder: Cholelithiasis. There is gallbladder wall thickening with pericholecystic fluid. Common bile duct: Common bile duct is at the upper limits of normal in diameter. No stones. IMPRESSION: Cholelithiasis. There is gallbladder wall thickening with pericholecystic fluid. Electronically signed by: Kevin Car MD 10/25/2024 06:53 AM [facility] 8 Due to temporary technical issues with the PACS/[employer] scribe reporting system, reports are being sign ed by the in-house radiologist without review as a courtesy to ensure prompt reporting the interpreting rad iologist is fully responsible for the content of the report. Transcribed Date/Time: 10/25/2024 7:00 AM
[2024-10-25 08:25] VITALS: TEMP 98.1
[2024-10-25 08:41] VITALS: BP 110/66; O2SAT 97
== END 2024-10-25 07:29 | disposition short-term general hospital (02) ==
LOC: ER 01:16
DX: K81.9 Cholecystitis, unspecified (principal)
CPT/HCPCS: 36415; 71045; 74177; 76705; 80053; 83690; 85025; 96361; 96365; 96375; 99285; J2405; J2543; J2765; J7030; Q9967